=== PATIENT | female | born 1985 | race Caucasian/White ===

== ENCOUNTER 2022-07-24 14:46 | Outpatient (CLI) | payer OTHER | END 2022-07-24 14:47 | disposition home or self-care (01) | LOC: NAV RAD 14:46 | PROVIDERS: ATTEND Internal Medicine Rheumatology | DX: M54.40 Lumbago with sciatica, unspecified side (principal); M47.816 Spondylosis without myelopathy or radiculopathy, lumbar region | CPT/HCPCS: 72110 ==

== ENCOUNTER 2024-12-15 11:07 | Emergency (ER) | payer BC | END 2024-12-15 13:00 | disposition home or self-care (01) | LOC: NAV ERS 11:07 | DX: R51.9 Headache, unspecified (principal); R42 Dizziness and giddiness; R29.700 NIHSS score 0 | CPT/HCPCS: 99283; Q0169 ==